=== PATIENT | female | born 1970 | race African-American/Black ===

== ENCOUNTER 2016-09-12 09:07 | Emergency (ER) | payer MEDICAID ==
[~2016-09-12] VITALS: Ht 157.5 cm; Wt 63.5 kg
[~2016-09-12 09:07] MED LIST: MIRT15 PO
[2016-09-12] MEDS ORDERED: HYDR-4031 PO (09:22)
[2016-09-12 09:23] VITALS: BP 114/85
[2016-09-12] MEDS ORDERED: HydrOXYzine PAMOATE 25 MG CAPSULE PO ONE (10:15)
== END 2016-09-12 11:35 | disposition home or self-care (01) ==
LOC: EMS 09:08
DX: F41.9 Anxiety disorder, unspecified (principal); F32.9 Major depressive disorder, single episode, unspecified; F17.210 Nicotine dependence, cigarettes, uncomplicated; Z76.0 Encounter for issue of repeat prescription; Z88.0 Allergy status to penicillin
CPT/HCPCS: 99284; 99406

== ENCOUNTER 2017-07-26 04:41 | Emergency (ER) | payer MEDICAID ==
[~2017-07-26] VITALS: Ht 157.5 cm; Wt 63.6 kg
[~2017-07-26 04:41] MED LIST changes: +HYDR-4031 PO
[2017-07-26 04:45] VITALS: BP 133/93
== END 2017-07-26 05:40 | disposition left against medical advice (07) ==
LOC: EMS 04:42
DX: S43.101A Unspecified dislocation of right acromioclavicular joint, initial encounter (principal); F17.210 Nicotine dependence, cigarettes, uncomplicated; Z88.6 Allergy status to analgesic agent; Z88.5 Allergy status to narcotic agent; Z88.0 Allergy status to penicillin; X58.XXXA Exposure to other specified factors, initial encounter; Y93.89 Activity, other specified; Y92.89 Other specified places as the place of occurrence of the external cause; Y99.8 Other external cause status
CPT/HCPCS: 99283

== ENCOUNTER 2018-03-25 10:31 | Emergency (ER) | payer MEDICAID ==
[~2018-03-25] VITALS: Ht 157.5 cm; Wt 63.5 kg
[2018-03-25 11:15] VITALS: BP 138/86
== END 2018-03-25 13:24 | disposition home or self-care (01) ==
LOC: EDUNIT# 10:31 → EMS 10:33
DX: S42.031A Displaced fracture of lateral end of right clavicle, initial encounter for closed fracture (principal); R07.81 Pleurodynia; F41.9 Anxiety disorder, unspecified; F32.9 Major depressive disorder, single episode, unspecified; F17.210 Nicotine dependence, cigarettes, uncomplicated; Z88.6 Allergy status to analgesic agent; Z88.5 Allergy status to narcotic agent; Z88.0 Allergy status to penicillin; Y35.811A Legal intervention involving manhandling, law enforcement official injured, initial encounter; Y93.02 Activity, running; Y92.89 Other specified places as the place of occurrence of the external cause; Y99.8 Other external cause status

== ENCOUNTER 2022-06-15 03:35 | Emergency (ER) | payer MEDICAID ==
[~2022-06-15] VITALS: Ht 167.6 cm; Wt 81.8 kg
[~2022-06-15 03:35] MED LIST changes: -HYDR-4031 PO; +HYDR-4808 PO; +MIRT-89 PO; -MIRT15 PO
[2022-06-15 03:39] VITALS: BP 149/89
[2022-06-15] MEDS ORDERED: HYDR-4808 PO (03:57)
[2022-06-15] MEDS ORDERED: MIRT-149 PO (03:57)
[2022-06-15] MEDS ORDERED: MIRTAZAPINE 30 MG TABLET PO ONE (04:00)
[2022-06-15] MEDS ORDERED: MIRTAZAPINE 15 MG TABLET PO ONE (04:00)
== END 2022-06-15 04:11 | disposition home or self-care (01) ==
LOC: EMS 03:36
DX: Z76.0 Encounter for issue of repeat prescription (principal); F32.A Depression, unspecified; F41.9 Anxiety disorder, unspecified; F17.210 Nicotine dependence, cigarettes, uncomplicated; Z88.0 Allergy status to penicillin; Z88.5 Allergy status to narcotic agent; Z88.8 Allergy status to other drugs, medicaments and biological substances
CPT/HCPCS: 99283